=== PATIENT | male | born 1960 | race Caucasian/White ===

== ENCOUNTER 2016-08-29 14:34 | Emergency (ER) | payer OTHER ==
--- NOTE | 2016-08-29 16:38 | ED NURSING NOTES ---
Clinical Report - Nurses [facility] [address] [place] [address] 08/29/2016 14:33 Patient: JAVAN CAMERON TRIAGE Triage time 14:42. Acuity: LEVEL 3. Chief Complaint: RAO PROBLEM. 14:52 08/29/16. Alert. No acute distress. --14:52 Dashawn Hansen R.N. 14:44 08/29/16. BP: 148/91. HR: 79. RR: 16. O2 saturation: 94% on room air. Temp: 98.4 F (oral). Pain level now 0/10. --14:52 Dashawn Hansen R.N. Weight: 98.8 kg stated. Height/Length: 67 inches Per Patient. BMI: 34.1. --14:47 Dashawn Hansen R.N. Medications ALPRAZolam Oral. --14:50 Dashawn Hansen R.N. HYDROmorphone HCl Oral. --14:50 Dashawn Hansen R.N. Morphine Sulfate ER Oral. --14:50 Dashawn Hansen R.N. Simvastatin Oral. --14:50 Dashawn Hansen R.N. Warfarin Sodium Oral. --14:50 Dashawn Hansen R.N. Allergies Latex.(itching) Lovenox.(itching) --14:50 Dashawn Hansen R.N. History Historian: patient. Primary physician (char). ( paraplegic, unable to deflate catheter balloon to change catheter at home. Pt cut catheter to attempt to drain balloon and now has catheter clamped off. Karen has been clamped for about 45 minutes.). This started today. Treatment [employer]ESS[employer]ITTED GOODS: None. SOCIAL HX: Never smoker. No alcohol use or drug use. FALL RISK ASSESSMENT: Fall risk assessment completed. No fall risk identified. NUTRITIONAL RISK ASSESSMENT: The nutritional risk assessment revealed no deficiencies. FUNCTIONAL ASSESSMENT: Functional assessment: no impairments noted. LEARNING NEEDS ASSESSMENT: The learning needs assessment revealed no barriers. SKIN INTEGRITY ASSESSMENT: Skin integrity risk assessment completed. No skin integrity risk identified. --14:52 Dashawn Hansen R.N. PROBLEMS: Cystitis. UTI - Urinary Tract Infection. Insomnia. Hyperlipidemia. Ureterolithiasis. Pulmonary Embolism. DVT - Deep Venous Thrombosis. Blood clots/green filter. Paraplegic. Chronic rt hip pain. --14:52 Dashawn Hansen R.N. ADDITIONAL SURGERIES: Back Surgery. Cholecystectomy. Neck Surgery. Shoulder Surgery. --14:52 Dashawn Hansen R.N. Interventions ID band on patient. To waiting room. --14:52 Dashawn Hansen R.N. PHYSICAL ASSESSMENT To room via wheelchair. GENERAL / NEURO / PSYCH: Alert. Oriented X 4. Appears in no acute distress. HEENT: Mucous membranes are pink. RESPIRATORY: Respirations not labored. Breath sounds within normal limits. CVS: Normal heart rate and rhythm. Capillary refill less than 2 seconds. GI / : Rao catheter in place on arrival (cut and clammped). SKIN: Skin is warm and dry. --15:14 Rosie Boone R.N. NURSING PROGRESS NOTES Call light placed in reach. --15:15 Rosie Boone R.N. 15:29 08/29/16. ( Bladder scan 271 mLs). --15:29 Wade Hutchison R.N. 16:16 08/29/16. ( Appt scheduled for 08/30/2016 at 11:00 with urologist, Dr. Mart.). --16:16 Bala Vaughan. DISPOSITION / DISCHARGE Departure time: 16:45 Aug 29 2016. Condition at departure: improved. No learning barriers present. Discharge instructions provided and reviewed with the patient. Reviewed warnings. Reviewed medication(s). Treatments reviewed. Reviewed referrals. Patient verbalized understanding. Written instructions provided in Brazilian. The patient was discharged home and accompanied by spouse. He left the Emergency Department in a wheelchair and via private vehicle. Spouse driving. --16:50 Rosie Boone R.N. 16:50 08/29/16. BP: 148/82. HR: 90. RR: 18. O2 saturation: 99%. Temp: 98.4 F. Pain level now 0/10. --16:50 Rosie Boone R.N. Locked/Released at 09/01/2016 19:12 by Rosie Boone R.N.
--- NOTE | 2016-08-29 16:38 | ED NURSING NOTES ---
Clinical Report - Nurses [facility] [address] [place] [address] 08/29/2016 14:33 Patient: JAVAN CAMERON TRIAGE Triage time 14:42. Acuity: LEVEL 3. Chief Complaint: RAO PROBLEM. 14:52 08/29/16. Alert. No acute distress. --14:52 Dashawn Hansen R.N. 14:44 08/29/16. BP: 148/91. HR: 79. RR: 16. O2 saturation: 94% on room air. Temp: 98.4 F (oral). Pain level now 0/10. --14:52 Dashawn Hansen R.N. Weight: 98.8 kg stated. Height/Length: 67 inches Per Patient. BMI: 34.1. --14:47 Dashawn Hansen R.N. Medications ALPRAZolam Oral. --14:50 Dashawn Hansen R.N. HYDROmorphone HCl Oral. --14:50 Dashawn Hansen R.N. Morphine Sulfate ER Oral. --14:50 Dashawn Hansen R.N. Simvastatin Oral. --14:50 Dashawn Hansen R.N. Warfarin Sodium Oral. --14:50 Dashawn Hansen R.N. Allergies Latex.(itching) Lovenox.(itching) --14:50 Dashawn Hansen R.N. History Historian: patient. Primary physician (char). ( paraplegic, unable to deflate catheter balloon to change catheter at home. Pt cut catheter to attempt to drain balloon and now has catheter clamped off. Karen has been clamped for about 45 minutes.). This started today. Treatment SERVICE PARTS COORDINATOR: None. SOCIAL HX: Never smoker. No alcohol use or drug use. FALL RISK ASSESSMENT: Fall risk assessment completed. No fall risk identified. NUTRITIONAL RISK ASSESSMENT: The nutritional risk assessment revealed no deficiencies. FUNCTIONAL ASSESSMENT: Functional assessment: no impairments noted. LEARNING NEEDS ASSESSMENT: The learning needs assessment revealed no barriers. SKIN INTEGRITY ASSESSMENT: Skin integrity risk assessment completed. No skin integrity risk identified. --14:52 Dashawn Hansen R.N. PROBLEMS: Cystitis. UTI - Urinary Tract Infection. Insomnia. Hyperlipidemia. Ureterolithiasis. Pulmonary Embolism. DVT - Deep Venous Thrombosis. Blood clots/green filter. Paraplegic. Chronic rt hip pain. --14:52 Dashawn Hansen R.N. ADDITIONAL SURGERIES: Back Surgery. Cholecystectomy. Neck Surgery. Shoulder Surgery. --14:52 Dashawn Hansen R.N. Interventions ID band on patient. To waiting room. --14:52 Dashawn Hansen R.N. PHYSICAL ASSESSMENT To room via wheelchair. GENERAL / NEURO / PSYCH: Alert. Oriented X 4. Appears in no acute distress. HEENT: Mucous membranes are pink. RESPIRATORY: Respirations not labored. Breath sounds within normal limits. CVS: Normal heart rate and rhythm. Capillary refill less than 2 seconds. GI / : Rao catheter in place on arrival (cut and clammped). SKIN: Skin is warm and dry. --15:14 Rosie Boone R.N. NURSING PROGRESS NOTES Call light placed in reach. --15:15 Rosie Boone R.N. 15:29 08/29/16. ( Bladder scan 271 mLs). --15:29 Wade Hutchison R.N. 16:16 08/29/16. ( Appt scheduled for 08/30/2016 at 11:00 with urologist, Dr. Mart.). --16:16 Bala Vaughan. DISPOSITION / DISCHARGE Departure time: 16:45 Aug 29 2016. Condition at departure: improved. No learning barriers present. Discharge instructions provided and reviewed with the patient. Reviewed warnings. Reviewed medication(s). Treatments reviewed. Reviewed referrals. Patient verbalized understanding. Written instructions provided in Turkish. The patient was discharged home and accompanied by spouse. He left the Emergency Department in a wheelchair and via private vehicle. Spouse driving. --16:50 Rosie Boone R.N. 16:50 08/29/16. BP: 148/82. HR: 90. RR: 18. O2 saturation: 99%. Temp: 98.4 F. Pain level now 0/10. --16:50 Rosie Boone R.N. Locked/Released at 09/01/2016 19:12 by Rosie Boone R.N.
--- NOTE | 2016-08-29 16:38 | ED CLINICAL REPORT ---
Clinical Report - Physicians/Mid Levels [facility] [address] [place] [address] 08/29/2016 14:33 Patient: JAVAN CAMERON Time Seen: 15:31; initial patient contact. Arrived- By private vehicle. Historian- patient. HISTORY OF PRESENT ILLNESS Chief Complaint: RAO PROBLEM. This started today and is still present. The problem is described as mild. It was abrupt in onset. No discomfort with urination. Able to void. Not voiding only small amounts. He has had Rao catheter problems (Not able to deflate balloon to change). The catheter has not been blocked. No pain, bloody urine noted or usman blood noted. Sexual history is noncontributory. Similar symptoms previously: Several times. Recent medical care: Not recently seen/assessed. REVIEW OF SYSTEMS No fever, chills or hematuria. All systems otherwise negative, except as recorded above. PAST HISTORY ( Cystitis. UTI - Urinary Tract Infection. Insomnia. Hyperlipidemia. Ureterolithiasis. Pulmonary Embolism. DVT - Deep Venous Thrombosis. Blood clots/green filter. Paraplegic. Chronic rt hip pain. SURGERIES: Back Surgery. Cholecystectomy. Neck Surgery. Shoulder Surgery.). SOCIAL HISTORY Never smoker. No alcohol use or drug use. ADDITIONAL NOTES The nursing notes have been reviewed with agreement regarding the chief complaint, PMH and patient medications and allergies. PHYSICAL EXAM Vital Signs: 08/29/2016 14:44 BP: 148/91. HR: 79. RR: 16. O2 saturation: 94%. Temp: 98.4 F. Have been reviewed. Hypertensive. Heart rate normal. Respiratory rate normal. Temperature normal. Oxygen saturation low. Appearance: Alert. Oriented X3. No acute distress. ENT: Pharynx normal. Abdomen: Soft and nontender. Bowel sounds normal. Back: No CVA tenderness. : Normal genitalia. Rao catheter (Cut just distal to port). Skin: No rash. Neuro: Oriented X 3. PROGRESS AND PROCEDURES PROCEDURES (Attempted to deflate balloon using an 18 ga angiocath placed in port for balloon, unable to insuflate or desuflate.). Course of Care: Pt to keep cath clamped and drain PRN and will see urology tomorrow. Disposition: Discharged home in good and improved condition. Condition: good. CLINICAL IMPRESSION (Malfunctioning Rao catheter). INSTRUCTIONS Your Current Medications: CONTINUE TAKING THE FOLLOWING MEDICATIONS: ALPRAZolam Oral. HYDROmorphone HCl Oral. Morphine Sulfate ER Oral. Simvastatin Oral. Warfarin Sodium Oral. Prescription Medications: Cipro 500 mg: take 1 tab orally every 12 hours for 3 days. No refills. Substitution is permissible. Follow-up: Follow up with your doctor Dr. Mart at 11:00 tomorrow. Screening today revealed the patient's blood pressure to be in the hypertensive range. The patient should follow up with a primary care provider for blood pressure management. (Electronically signed by Avtar Alejandre Dr. 08/30/2016 21:00)
--- NOTE | 2016-08-29 16:38 | ED CLINICAL REPORT ---
Clinical Report - Physicians/Mid Levels [facility] [address] [place] [address] 08/29/2016 14:33 Patient: JAVAN CAMERON Time Seen: 15:31; initial patient contact. Arrived- By private vehicle. Historian- patient. HISTORY OF PRESENT ILLNESS Chief Complaint: RAO PROBLEM. This started today and is still present. The problem is described as mild. It was abrupt in onset. No discomfort with urination. Able to void. Not voiding only small amounts. He has had Rao catheter problems (Not able to deflate balloon to change). The catheter has not been blocked. No pain, bloody urine noted or usman blood noted. Sexual history is noncontributory. Similar symptoms previously: Several times. Recent medical care: Not recently seen/assessed. REVIEW OF SYSTEMS No fever, chills or hematuria. All systems otherwise negative, except as recorded above. PAST HISTORY ( Cystitis. UTI - Urinary Tract Infection. Insomnia. Hyperlipidemia. Ureterolithiasis. Pulmonary Embolism. DVT - Deep Venous Thrombosis. Blood clots/green filter. Paraplegic. Chronic rt hip pain. SURGERIES: Back Surgery. Cholecystectomy. Neck Surgery. Shoulder Surgery.). SOCIAL HISTORY Never smoker. No alcohol use or drug use. ADDITIONAL NOTES The nursing notes have been reviewed with agreement regarding the chief complaint, PMH and patient medications and allergies. PHYSICAL EXAM Vital Signs: 08/29/2016 14:44 BP: 148/91. HR: 79. RR: 16. O2 saturation: 94%. Temp: 98.4 F. Have been reviewed. Hypertensive. Heart rate normal. Respiratory rate normal. Temperature normal. Oxygen saturation low. Appearance: Alert. Oriented X3. No acute distress. ENT: Pharynx normal. Abdomen: Soft and nontender. Bowel sounds normal. Back: No CVA tenderness. : Normal genitalia. Rao catheter (Cut just distal to port). Skin: No rash. Neuro: Oriented X 3. PROGRESS AND PROCEDURES PROCEDURES (Attempted to deflate balloon using an 18 ga angiocath placed in port for balloon, unable to insuflate or desuflate.). Course of Care: Pt to keep cath clamped and drain PRN and will see urology tomorrow. Disposition: Discharged home in good and improved condition. Condition: good. CLINICAL IMPRESSION (Malfunctioning Rao catheter). INSTRUCTIONS Your Current Medications: CONTINUE TAKING THE FOLLOWING MEDICATIONS: ALPRAZolam Oral. HYDROmorphone HCl Oral. Morphine Sulfate ER Oral. Simvastatin Oral. Warfarin Sodium Oral. Prescription Medications: Cipro 500 mg: take 1 tab orally every 12 hours for 3 days. No refills. Substitution is permissible. Follow-up: Follow up with your doctor Dr. Mart at 11:00 tomorrow. Screening today revealed the patient's blood pressure to be in the hypertensive range. The patient should follow up with a primary care provider for blood pressure management. (Electronically signed by Avtar Alejandre Dr. 08/30/2016 21:00)
--- NOTE | 2016-08-29 16:38 | ED ORDER SUMMARY ---
..... Patient: JAVAN CAMERON OrderSheet [facility] VisitID: [id number] [address] [place] [address] 56y, M Registration Date/Time: 08/29/2016 ORDER SHEET Weight: 98.8 kg (stated) Allergies: Latex, Lovenox GENERAL ORDERS: Bladder Scan (15:29 08/29/2016 Juwan Murray per protocol) (15:29 Juwan Deluna.Lobo) MEDICATION ORDERS: IV FLUIDS: ORDER SHEET NOTES: [Electronically signed by Avtar Alejandre Dr. (21:00 08/30/2016)] [Electronically signed by Rosie Boone R.N. (19:12 09/01/2016)] [Electronically locked/signed by Rosie Boone R.N. (19:12 09/01/2016)]
--- NOTE | 2016-08-29 16:38 | ED ORDER SUMMARY ---
..... Patient: JAVAN CAMERON OrderSheet [facility] VisitID: [id number] [address] [place] [address] 56y, M Registration Date/Time: 08/29/2016 ORDER SHEET Weight: 98.8 kg (stated) Allergies: Latex, Lovenox GENERAL ORDERS: Bladder Scan (15:29 08/29/2016 Juwan Murray per protocol) (15:29 Juwan Deluna.Lobo) MEDICATION ORDERS: IV FLUIDS: ORDER SHEET NOTES: [Electronically signed by Avtar Alejandre Dr. (21:00 08/30/2016)] [Electronically signed by Rosie Boone R.N. (19:12 09/01/2016)] [Electronically locked/signed by Rosie Boone R.N. (19:12 09/01/2016)]
--- NOTE | 2016-09-01 19:12 | ED DISCHARGE INSTRUCTIONS ---
Patient: JAVAN CAMERON General Instructions [facility] VisitID: [id number] [place] [address] 56y, M Registration Date/Time: 08/29/2016 (Malfunctioning Chowdhury catheter). INSTRUCTIONS Your Current Medications: CONTINUE TAKING THE FOLLOWING MEDICATIONS: ALPRAZolam Oral. HYDROmorphone HCl Oral. Morphine Sulfate ER Oral. Simvastatin Oral. Warfarin Sodium Oral. Prescription Medications: Cipro 500 mg: take 1 tab orally every 12 hours for 3 days. No refills. Substitution is permissible. Follow-up: Follow up with your doctor Dr. Mart at 11:00 tomorrow. Screening today revealed the patient's blood pressure to be in the hypertensive range. The patient should follow up with a primary care provider for blood pressure management. ADDITIONAL INFORMATION Ciprofloxacin Hydrochloride Oral tablet What is this medicine? CIPROFLOXACIN (sip marina FLOX a sin) is a quinolone antibiotic. It is used to treat certain kinds of bacterial infections. It will not work for colds, flu, or other viral infections. How should I use this medicine? Take this medicine by mouth with a glass of water. Follow the directions on the prescription label. Take your medicine at regular intervals. Do not take your medicine more often than directed. Take all of your medicine as directed even if you think your are better. Do not skip doses or stop your medicine early. You can take this medicine with food or on an empty stomach. It can be taken with a meal that contains dairy or calcium, but do not take it alone with a dairy product, like milk or yogurt or calcium-fortified juice. A special MedGuide will be given to you by the pharmacist with each prescription and refill. Be sure to read this information carefully each time. Talk to your quality management coordinator regarding the use of this medicine in children. Special care may be needed. What side effects may I notice from receiving this medicine? Side effects that you should report to your doctor or health attending ambulatory care as soon as possible: - allergic reactions like skin rash, itching or hives, swelling of the face, lips, or tongue - breathing problems - confusion, nightmares or hallucinations - feeling faint or lightheaded, falls - irregular heartbeat - joint, muscle or tendon pain or swelling - pain or trouble passing urine -persistent headache with or without blurred vision - redness, blistering, peeling or loosening of the skin, including inside the mouth - seizure - unusual pain, numbness, tingling, or weakness Side effects that usually do not require medical attention (report to your doctor or health attending ambulatory care if they continue or are bothersome): - diarrhea - nausea or stomach upset - white patches or sores in the mouth What may interact with this medicine? Do not take this medicine with any of the following medications: cisapride droperidol terfenadine tizanidine This medicine may also interact with the following medications: antacids caffeine cyclosporin didanosine (ddI) buffered tablets or powder medicines for diabetes medicines for inflammation like ibuprofen, naproxen methotrexate multivitamins omeprazole phenytoin probenecid sucralfate theophylline warfarin What if I miss a dose? If you miss a dose, take it as soon as you can. If it is almost time for your next dose, take only that dose. Do not take double or extra doses. Where should I keep my medicine? Keep out of the reach of children. Store at room temperature below 30 degrees C (86 degrees F). Keep container tightly closed. Throw away any unused medicine after the expiration date. What should I tell my health care provider before I take this medicine? They need to know if you have any of these conditions: -bone problems -cerebral disease -joint problems -irregular heartbeat -kidney disease -liver disease -myasthenia gravis -seizure disorder -tendon problems -an unusual or allergic reaction to ciprofloxacin, other antibiotics or medicines, foods, dyes, or preservatives - or trying to get -breast-feeding What should I watch for while using this medicine? Tell your doctor or health attending ambulatory care if your symptoms do not improve. Do not treat diarrhea with over the counter products. Contact your doctor if you have diarrhea that lasts more than 2 days or if it is severe and watery. You may get drowsy or dizzy. Do not drive, use machinery, or do anything that needs mental alertness until you know how this medicine affects you. Do not stand or sit up quickly, especially if you are an older patient. This reduces the risk of dizzy or fainting spells. This medicine can make you more sensitive to the sun. Keep out of the sun. If you cannot avoid being in the sun, wear protective clothing and use sunscreen. Do not use sun lamps or tanning beds/booths. Avoid antacids, aluminum, calcium, iron, magnesium, and zinc products for 6 hours before and 2 hours after taking a dose of this medicine. You have been given the following additional information: Ciprofloxacin Hydrochloride Oral tablet (Electronically signed by Avtar Alejandre Dr. 08/30/2016 21:00)
--- NOTE | 2016-09-01 19:12 | ED DISCHARGE INSTRUCTIONS ---
Patient: JAVAN CAMERON General Instructions [facility] VisitID: [id number] [place] [address] 56y, M Registration Date/Time: 08/29/2016 (Malfunctioning Chowdhury catheter). INSTRUCTIONS Your Current Medications: CONTINUE TAKING THE FOLLOWING MEDICATIONS: ALPRAZolam Oral. HYDROmorphone HCl Oral. Morphine Sulfate ER Oral. Simvastatin Oral. Warfarin Sodium Oral. Prescription Medications: Cipro 500 mg: take 1 tab orally every 12 hours for 3 days. No refills. Substitution is permissible. Follow-up: Follow up with your doctor Dr. Mart at 11:00 tomorrow. Screening today revealed the patient's blood pressure to be in the hypertensive range. The patient should follow up with a primary care provider for blood pressure management. ADDITIONAL INFORMATION Ciprofloxacin Hydrochloride Oral tablet What is this medicine? CIPROFLOXACIN (sip marina FLOX a sin) is a quinolone antibiotic. It is used to treat certain kinds of bacterial infections. It will not work for colds, flu, or other viral infections. How should I use this medicine? Take this medicine by mouth with a glass of water. Follow the directions on the prescription label. Take your medicine at regular intervals. Do not take your medicine more often than directed. Take all of your medicine as directed even if you think your are better. Do not skip doses or stop your medicine early. You can take this medicine with food or on an empty stomach. It can be taken with a meal that contains dairy or calcium, but do not take it alone with a dairy product, like milk or yogurt or calcium-fortified juice. A special MedGuide will be given to you by the pharmacist with each prescription and refill. Be sure to read this information carefully each time. Talk to your chief nurse anesthetist regarding the use of this medicine in children. Special care may be needed. What side effects may I notice from receiving this medicine? Side effects that you should report to your doctor or health adult daycare coordinator as soon as possible: - allergic reactions like skin rash, itching or hives, swelling of the face, lips, or tongue - breathing problems - confusion, nightmares or hallucinations - feeling faint or lightheaded, falls - irregular heartbeat - joint, muscle or tendon pain or swelling - pain or trouble passing urine -persistent headache with or without blurred vision - redness, blistering, peeling or loosening of the skin, including inside the mouth - seizure - unusual pain, numbness, tingling, or weakness Side effects that usually do not require medical attention (report to your doctor or health adult daycare coordinator if they continue or are bothersome): - diarrhea - nausea or stomach upset - white patches or sores in the mouth What may interact with this medicine? Do not take this medicine with any of the following medications: cisapride droperidol terfenadine tizanidine This medicine may also interact with the following medications: antacids caffeine cyclosporin didanosine (ddI) buffered tablets or powder medicines for diabetes medicines for inflammation like ibuprofen, naproxen methotrexate multivitamins omeprazole phenytoin probenecid sucralfate theophylline warfarin What if I miss a dose? If you miss a dose, take it as soon as you can. If it is almost time for your next dose, take only that dose. Do not take double or extra doses. Where should I keep my medicine? Keep out of the reach of children. Store at room temperature below 30 degrees C (86 degrees F). Keep container tightly closed. Throw away any unused medicine after the expiration date. What should I tell my health care provider before I take this medicine? They need to know if you have any of these conditions: -bone problems -cerebral disease -joint problems -irregular heartbeat -kidney disease -liver disease -myasthenia gravis -seizure disorder -tendon problems -an unusual or allergic reaction to ciprofloxacin, other antibiotics or medicines, foods, dyes, or preservatives - or trying to get -breast-feeding What should I watch for while using this medicine? Tell your doctor or health adult daycare coordinator if your symptoms do not improve. Do not treat diarrhea with over the counter products. Contact your doctor if you have diarrhea that lasts more than 2 days or if it is severe and watery. You may get drowsy or dizzy. Do not drive, use machinery, or do anything that needs mental alertness until you know how this medicine affects you. Do not stand or sit up quickly, especially if you are an older patient. This reduces the risk of dizzy or fainting spells. This medicine can make you more sensitive to the sun. Keep out of the sun. If you cannot avoid being in the sun, wear protective clothing and use sunscreen. Do not use sun lamps or tanning beds/booths. Avoid antacids, aluminum, calcium, iron, magnesium, and zinc products for 6 hours before and 2 hours after taking a dose of this medicine. You have been given the following additional information: Ciprofloxacin Hydrochloride Oral tablet (Electronically signed by Avtar Alejandre Dr. 08/30/2016 21:00)
--- NOTE | 2016-09-01 19:12 | ED MAR SUMMARY ---
..... Medication Administration Record [facility] [address] [place], [place] [id number] Patient: JAVAN CAMERON Visit ID: [id number] 56y, M Weight: 98.8 kg Height/Length: 67 in BMI: 34.1 ALLERGIES: Latex, Lovenox
--- NOTE | 2016-09-01 19:12 | ED MED RECONCILIATION SUMMARY ---
Patient: JAVAN CAMERON Medication Reconciliation Report [facility] VisitID: [id number] [address] [place] [address] 56y, M Registration Date/Time: 08/29/2016 Weight: 98.8 kg Height/Length: 67 in. BMI: 34.1 ALLERGIES: Latex, Lovenox The patient's Home Medications are listed below: CONTINUE TAKING THE FOLLOWING MEDICATIONS: ALPRAZolam Oral HYDROmorphone HCl Oral Morphine Sulfate ER Oral Simvastatin Oral Warfarin Sodium Oral The source(s) of the original Home Medication information: Not obtained. The following Medications were given to the patient in the Emergency Department: None. The following Medications were prescribed to the patient: Cipro 500 mg: take 1 tab orally every 12 hours for 3 days. No refills. Substitution is permissible. -- Avtar Alejandre Dr.
--- NOTE | 2016-09-01 19:12 | ED MED RECONCILIATION SUMMARY ---
Patient: JAVAN CAMERON Medication Reconciliation Report [facility] VisitID: [id number] [address] [place] [address] 56y, M Registration Date/Time: 08/29/2016 Weight: 98.8 kg Height/Length: 67 in. BMI: 34.1 ALLERGIES: Latex, Lovenox The patient's Home Medications are listed below: CONTINUE TAKING THE FOLLOWING MEDICATIONS: ALPRAZolam Oral HYDROmorphone HCl Oral Morphine Sulfate ER Oral Simvastatin Oral Warfarin Sodium Oral The source(s) of the original Home Medication information: Not obtained. The following Medications were given to the patient in the Emergency Department: None. The following Medications were prescribed to the patient: Cipro 500 mg: take 1 tab orally every 12 hours for 3 days. No refills. Substitution is permissible. -- Avtar Alejandre Dr.
--- NOTE | 2016-09-01 19:12 | ED MAR SUMMARY ---
..... Medication Administration Record [facility] [address] [place], [place] [id number] Patient: JAVAN CAMERON Visit ID: [id number] 56y, M Weight: 98.8 kg Height/Length: 67 in BMI: 34.1 ALLERGIES: Latex, Lovenox
== END 2016-08-29 16:45 | disposition home or self-care (01) ==
LOC: ED SRH 14:34
DX: T83.098A Other mechanical complication of other urinary catheter, initial encounter (principal); Z88.8 Allergy status to other drugs, medicaments and biological substances; Z79.899 Other long term (current) drug therapy; Z79.01 Long term (current) use of anticoagulants; G82.20 Paraplegia, unspecified